=== PATIENT | male | born 1985 | race Asian ===

== ENCOUNTER → 2017-09-21 | Outpatient (CLI) | payer OTHER | LOC: BMCIMAGING 09:31 | PROVIDERS: ATTEND Family Medicine | DX: M79.641 Pain in right hand (principal); M21.751 Unequal limb length (acquired), right femur ==

== ENCOUNTER → 2018-06-21 | Outpatient (CLI) | payer OTHER | LOC: BMCIMAGING 07:45 | PROVIDERS: ATTEND Orthopaedic Surgery Hand Surgery | DX: S62.151 Displaced fracture of hook process of hamate [unciform] bone, right wrist (principal); Z98.890 Other specified postprocedural states ==

== ENCOUNTER 2018-09-01 10:23 | Emergency (ER) | payer OTHER | END 2018-09-01 12:09 | disposition home or self-care (01) ==